=== PATIENT | male | born 1970 | race Asian ===

== ENCOUNTER 2021-12-21 16:05 | Outpatient (CLI) | payer OTHER ==
--- NOTE | 2021-12-21 17:57 | XRAY Report ---
PROCEDURE: Ankle 3 View RT INDICATIONS: PAIN OF RIGHT ANKLE JOINT TECHNIQUE: 3 views of the ankle were acquired. COMPARISON: None FINDINGS: Bones: No fractures or dislocations. Ankle mortise is normally aligned. No suspicious bony lesions . Soft tissues: No tibiotalar joint effusion. Moderate-sized Achilles insertion enthesophyte. Addition al calcifications noted overlying the mid Achilles tendon. The Achilles tendon appears mildly thicken ed. IMPRESSION: No acute osseous abnormality. Findings concerning for Achilles tendinopathy. Recommend clinical correlation. Reviewed by: Tristan Orellana DO on 12/21/2021 4:56 PM DANIS Approved by: Tristan Orellana DO on 12/21/2021 4:56 PM DANIS Station ID: [id number]
== END 2021-12-21 16:06 | disposition home or self-care (01) ==
LOC: DI 16:05
PROVIDERS: ATTEND Physician Assistant
DX: M25.571 Pain in right ankle and joints of right foot (principal)

== ENCOUNTER 2022-01-20 11:30 | Outpatient (CLI) | payer OTHER ==
--- NOTE | 2022-01-20 18:25 | XRAY Report ---
PROCEDURE: Ankle 3 View RT INDICATIONS: ANKLE PX TECHNIQUE: 3) weightbearing views of the ankle were acquired. COMPARISON: 12/21/2021 FINDINGS: Bones: No acute fractures or dislocations. Ankle mortise is normally aligned. No suspicious bony l esions. Prominent retrocalcaneal enthesophyte. Soft tissues: No tibiotalar joint effusion. Achilles tendon appears normal. IMPRESSION: Right ankle without acute fracture or malalignment. Prominent retrocalcaneal enthesophyt e. Reviewed by: Keshav Jeff MD on 01/20/2022 6:23 PM PDT Approved by: Keshav Jeff MD on 01/20/2022 6:23 PM PDT Station ID: [id number]
== END 2022-01-20 23:59 | disposition home or self-care (01) ==
LOC: DI.WOS 11:30
PROVIDERS: ATTEND Physician Assistant Surgical
DX: M77.51 Other enthesopathy of right foot and ankle (principal)